=== PATIENT | male | born 1965 | race Caucasian/White ===

== ENCOUNTER → 2022-09-08 14:27 | Outpatient (CLI) | payer BC, SELFPAY ==
--- NOTE | ~2022-09-08 | XR_ITS ---
[id number] 09/08/2022 14:47 Indication: Left foot pain Procedure: 4 views left foot Comparison: No prior studies for comparison. Findings: There is severe osteoarthritis of the first MTP joint. Small degenerative calcaneal entheso phyte. Lisfranc joint intact. No focal soft tissue abnormality. No radiopaque foreign bodies. 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 Reviewed, dictated and finalized at location D. 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
== END ==
PROVIDERS: PCP Family Medicine; Visit Provider Family Medicine
DX: M19.072 Primary osteoarthritis, left ankle and foot (principal)
CPT/HCPCS: 73630

== ENCOUNTER 2022-11-30 15:23 | Outpatient (CLI) | payer BC, SELFPAY ==
[2022-11-30 15:51] LABS: Basophils Percent Auto 0.3 % (0.2-1.2); Eosinophils Absolute Auto 0.1 K/mm3 (0-0.3); Eosinophils Percent Auto 0.9 % (0-4.4); Hematocrit 47.6 % (42.0-52.0); Hemoglobin 16.4 g/dL (14.0-18.0); Immature Granulocyte Absolute 0.06 K/mm3 (0.00-0.031); Immature Granulocyte Percent A 0.7 % (0-0.5); Lymphocytes Absolute Auto 2.05 K/mm3 (0.9-3.2); Lymphocytes Percent Auto 23.9 % (18.3-44.2); Mean Corpuscular HGB Conc 34.5 g/dl (32-36); Mean Corpuscular Hemoglobin 35.1 pg (26-34); Mean Corpuscular Volume 101.9 fl (80-100); Mean Platelet Volume 10.4 fl (7.4-10.4); Monocytes Absolute Auto 0.6 K/mm3 (0.1-0.6); Monocytes Percent Auto 6.6 % (2.6-8.5); Neutrophils Absolute Auto 5.8 K/mm3 (1.3-6.7); Neutrophils Percent Auto 67.6 % (45.5-73.1); Platelet Count Result 207 k/mm3 (150-375); Red Blood Count 4.67 M/mm3 (4.6-6.20); Red Cell Distribution Width 12.4 % (11.5-14.5); White Blood Count 8.6 K/mm3 (4.5-10.0)
[2022-11-30 16:39] LABS: Alanine Aminotransferase 53 U/L (6-50); Albumin Level 4.2 g/dL (3.5-5.1); Alkaline Phosphatase 84 U/L (38-126); Anion Gap 2 mmol/L (8-16); Aspartate Amino Transferase 68 U/L (17-59); Bilirubin,Total 1.1 mg/dL (0.2-1.3); Blood Urea Nitrogen 11 mg/dL (9-20); Calcium 8.6 mg/dL (8.4-10.2); Carbon Dioxide 29 mmol/L (22-30); Chloride 101 mmol/L (98-107); Estimated Glomerular Filt Rate > 60; Glucose 101 mg/dL (65-110); Potassium 4.5 mmol/L (3.4-5.0); Sodium 132 mmol/L (137-145)
[2022-12-03 12:32] LABS: Erythropoietin (EPO) 9.5 mIU/mL (2.6-18.5)
== END 2022-11-30 15:24 | disposition home or self-care (01) ==
LOC: ANHLAB 15:32
PROVIDERS: PCP Family Medicine; Visit Provider Internal Medicine Hematology & Oncology
DX: D75.1 Secondary polycythemia (principal)
CPT/HCPCS: 36415; 80053; 82668; 85025

== ENCOUNTER → 2022-12-06 14:13 | Outpatient (CLI) | payer BC, SELFPAY ==
--- NOTE | ~2022-12-06 | XR_ITS ---
EXAMINATION: XR chest 2V DATE: 12/06/2022 14:36 INDICATION: Shortness of breath. TECHNIQUE: Frontal and lateral views of the chest were obtained. COMPARISON: Chest 2 views 12/26/2006, CT abdomen and pelvis 06/22/2018 FINDINGS: A calcified right lung nodule is consistent with old granulomatous disease. No pleural effu conor or pneumothorax. The heart size is normal. IMPRESSION: 1. No acute cardiopulmonary disease. Reviewed, dictated and finalized at location A.
== END ==
PROVIDERS: PCP Internal Medicine Hematology & Oncology; Visit Provider Internal Medicine Hematology & Oncology
DX: R06.02 Shortness of breath (principal)
CPT/HCPCS: 71046

== ENCOUNTER 2022-12-06 14:44 | Outpatient (CLI) | payer BC, SELFPAY ==
[2022-12-12 07:01] LABS: CALR Exon 9 Mutation Not Detected (Not Detected); CSF3R Exon 14/17 Mutation Not Detected (Not Detected); JAK2 Exon 12 Mutation Not Detected (Not Detected); JAK2 V617F Mutation Not Detected (Not Detected); MPL Exon 10 Mutation Not Detected (Not Detected); Specimen Source Blood
== END 2022-12-06 14:45 | disposition home or self-care (01) ==
LOC: ANHLAB 14:46
PROVIDERS: PCP Internal Medicine Hematology & Oncology; Visit Provider Internal Medicine Hematology & Oncology
DX: D75.1 Secondary polycythemia (principal)
CPT/HCPCS: 36415; 81219; 81270; 81279; 81339; 81479

== ENCOUNTER 2023-03-30 15:06 | Outpatient (CLI) | payer BC, SELFPAY ==
[2023-03-30 15:37] LABS: Basophils Percent Auto 0.5 % (0.2-1.2); Eosinophils Absolute Auto 0.1 K/mm3 (0-0.3); Eosinophils Percent Auto 1.3 % (0-4.4); Hemoglobin 17.6 g/dL (14.0-18.0); Immature Granulocyte Absolute 0.07 K/mm3 (0.00-0.031); Immature Granulocyte Percent A 0.9 % (0-0.5); Lymphocytes Absolute Auto 1.69 K/mm3 (0.9-3.2); Lymphocytes Percent Auto 21.8 % (18.3-44.2); Mean Corpuscular HGB Conc 33.8 g/dl (32-36); Mean Corpuscular Hemoglobin 34.8 pg (26-34); Mean Corpuscular Volume 102.8 fl (80-100); Mean Platelet Volume 10.3 fl (7.4-10.4); Monocytes Absolute Auto 0.7 K/mm3 (0.1-0.6); Monocytes Percent Auto 8.5 % (2.6-8.5); Neutrophils Absolute Auto 5.2 K/mm3 (1.3-6.7); Platelet Count Result 207 k/mm3 (150-375); Red Blood Count 5.06 M/mm3 (4.6-6.20); Red Cell Distribution Width 12.4 % (11.5-14.5); White Blood Count 7.7 K/mm3 (4.5-10.0)
[2023-03-30 15:42] LABS: Blood Urea Nitrogen 13 mg/dL (8-26); Carbon Dioxide 29 mmol/L (22-30); Chloride 101 mmol/L (98-109); Estimated Glomerular Filt Rate > 60; Glucose 113 mg/dL (70-105); Ionized Calcium (POC) 1.13 mmol/L (1.11-1.31); Potassium 5.1 mmol/L (3.5-4.9); Sodium 139 mmol/L (138-146)
[2023-03-30 17:12] LABS: Alanine Aminotransferase 60 U/L (6-50); Albumin Level 4.3 g/dL (3.5-5.1); Alkaline Phosphatase 94 U/L (38-126); Anion Gap 7 mmol/L (8-16); Aspartate Amino Transferase 78 U/L (17-59); Bilirubin,Total 0.9 mg/dL (0.2-1.3); Blood Urea Nitrogen 13 mg/dL (9-20); Calcium 9.2 mg/dL (8.4-10.2); Carbon Dioxide 28 mmol/L (22-30); Chloride 102 mmol/L (98-107); Estimated Glomerular Filt Rate > 60; Glucose 112 mg/dL (65-110); Potassium 5.2 mmol/L (3.4-5.0); Sodium 137 mmol/L (137-145)
== END 2023-03-30 15:07 | disposition home or self-care (01) ==
LOC: ANHLAB 15:08
PROVIDERS: PCP Family Medicine; Visit Provider Internal Medicine Hematology & Oncology
DX: D75.1 Secondary polycythemia (principal)
CPT/HCPCS: 36415; 80047; 80053; 85025

== ENCOUNTER → 2023-05-17 13:33 | Outpatient (CLI) | payer BC, SELFPAY ==
--- NOTE | ~2023-05-17 | XR_ITS ---
XR knee LT min 4V DATE: 05/17/2023 13:55 INDICATION: Left knee primary osteoarthritis TECHNIQUE: AP, lateral, PA and sunrise views COMPARISON: None FINDINGS: There is tricompartment osteoarthritis, most severe at the medial compartment with severe l oss of joint space, periarticular spurring and subarticular degenerative cyst at the outer medial asp ect of the medial tibial plateau. There is moderate joint space narrowing and periarticular spurring of the patellofemoral joint. Mild periarticular spurring at the lateral compartment. There is suprapatellar knee joint effusion. No fracture or dislocation, periosteal reaction or bone destruction, radiopaque intra-articular loose body or chondrocalcinosis is evident. IMPRESSION: Tricompartment osteophytosis, most severe at the medial compartment Suprapatellar knee joint effusion Reviewed, dictated and finalized at location L. E CUFFER
--- NOTE | ~2023-05-17 | XR_ITS ---
XR knee RT min 4V DATE: 05/17/2023 13:55 INDICATION: Left knee pain TECHNIQUE: [place], AP, PA and lateral views COMPARISON: None FINDINGS: Mild suprapatellar knee joint effusion is suggested. There is minimal periarticular spurring of the patella. Joint spaces are relatively preserved. No fracture, dislocation, periosteal reaction or bone destruction is detected. No radiopaque intra-ar ticular loose body or chondrocalcinosis. IMPRESSION: Probable mild suprapatellar knee joint effusion Mild patellofemoral osteoarthritis Reviewed, dictated and finalized at location L. AND COAL TRANSPORT OPERATOR
--- NOTE | ~2023-05-17 | XR_ITS ---
XR shoulder RT min 2V DATE: 05/17/2023 13:55 INDICATION: Right shoulder pain TECHNIQUE: 4 views COMPARISON: None FINDINGS: Mild degenerative change at the right acromioclavicular joint. No fracture or dislocation, periosteal reaction or bone destruction or abnormal soft tissue calcifica tion of the right shoulder. IMPRESSION: Mild degenerative change at right acromioclavicular joint Reviewed, dictated and finalized at location L. AL MERCHANDISING ASSISTANT
== END ==
PROVIDERS: PCP Family Medicine; Visit Provider Family Medicine
DX: M25.462 Effusion, left knee (principal); M17.0 Bilateral primary osteoarthritis of knee; M25.461 Effusion, right knee; M19.011 Primary osteoarthritis, right shoulder
CPT/HCPCS: 73030; 73564

== ENCOUNTER 2023-08-02 15:21 | Outpatient (CLI) | payer BC, SELFPAY ==
--- NOTE | ~2023-08-02 | MR_ITS ---
EXAMINATION: MR shoulder RT wo con DATE: 08/02/2023 16:23 INDICATION: Right shoulder pain TECHNIQUE: Magnetic resonance imaging (MRI) of the right shoulder was performed without intravenous c ontrast. Sequences included axial PD-weighted FS FSE, coronal oblique PD-weighted FS FSE, coronal obl ique T2-weighted FS FSE, sagittal PD-weighted FS FSE, and sagittal T1-weighted SE. COMPARISON: None. FINDINGS: Coracoacromial arch: The acromion undersurface is flat in morphology (type I). The coracoacromial ligament is normal. Mode rate acromioclavicular osteoarthritis. Rotator cuff: Mild supraspinatus tendinopathy without tear. The infraspinatus and teres minor tendons are normal. M ild subscapularis tendinopathy with small split tear beginning along the lesser tuberosity footplate at the junction of the cephalad and middle thirds of the tendon. Normal rotator cuff muscle bulk and signal. Biceps tendon, glenoid labrum and glenohumeral cartilage: Complete tear at the glenoid attachment of the long head biceps tendon which is retracted below the c audal margin of the field of imaging. There is associated tear of the superior glenoid labrum beginni ng anteriorly at the 12:30 position which extends posteriorly to the 9:00 position. There is an addit ional small tear at the base of the 3:00-4:00 position of the anteroinferior glenoid labrum. There is an adjacent very small deep chondral ulceration with underlying tiny central subchondral osteophyte and minimal subarticular edema-like signal change at the anteroinferior rim of the glenoid. Remainder of the glenohumeral cartilage appears normal. Fluid: Small glenohumeral joint effusion at the axillary and subscapular recesses. No loose osteochondral [place] dies. No abnormal fluid signal in the subacromial/subdeltoid bursa to suggest bursitis. Bones: Bone alignment is normal. Normal marrow signal with no fracture or pathologic marrow replacing proces s. IMPRESSION: 1. Mild glenohumeral osteoarthritis with tear at the superior to posterosuperior glenoid labrum and s eparate smaller labral tear and small focus of adjacent high-grade chondromalacia at the anteroinferi or glenoid. 2. Complete long head biceps tendon avulsion distal retraction from its glenoid anchor. 3. Mild supraspinatus and subscapularis tendinopathy with very small longitudinal split tear at the l rod tuberosity insertion of the subscapularis tendon. 4. Moderate acromioclavicular osteoarthritis. Reviewed, dictated and finalized at location A. IMPRESSION: 1. Mild glenohumeral osteoarthritis with tear at the superior to posterosuperio r glenoid labrum and separate smaller labral tear and small focus of adjacent h igh-grade chondromalacia at the anteroinferior glenoid. 2. Complete long head biceps tendon avulsion distal retraction from its glenoid anchor. 3. Mild supraspinatus and subscapularis tendinopathy with very small longitudin al split tear at the lesser tuberosity insertion of the subscapularis tendon. 4. Moderate acromioclavicular osteoarthritis.
== END 2023-08-02 15:22 | disposition home or self-care (01) ==
LOC: ANHIMG 15:21
PROVIDERS: PCP Family Medicine; Visit Provider Orthopaedic Surgery
DX: S46.111A Strain of muscle, fascia and tendon of long head of biceps, right arm, initial encounter (principal); X58.XXXA Exposure to other specified factors, initial encounter; M19.011 Primary osteoarthritis, right shoulder
CPT/HCPCS: 73221

== ENCOUNTER 2023-09-05 13:42 | Outpatient (CLI) | payer BC, SELFPAY ==
--- NOTE | ~2023-09-05 | XR_ITS ---
XR knee LT min 4V DATE: 09/05/2023 13:56 INDICATION: Chronic left knee pain. No injury. TECHNIQUE: 4 views COMPARISON: 05/17/2023 left knee FINDINGS: There is tricompartment osteoarthritis, most severe at the medial compartment, with minimal residual medial compartment joint space. There is periarticular spurring at all 3 compartments. No fracture or dislocation or joint effusion, periosteal reaction or bone destruction, radiopaque int ra-articular loose body or chondrocalcinosis is noted. IMPRESSION: Tricompartment osteoarthritis, most severe at the medial compartment Reviewed, dictated and finalized at location B. IMPRESSION: Tricompartment osteoarthritis, most severe at the medial compartmen t
== END 2023-09-05 13:43 | disposition home or self-care (01) ==
LOC: ANHIMG 13:43
PROVIDERS: PCP Family Medicine; Visit Provider Orthopaedic Surgery
DX: M25.562 Pain in left knee (principal); M17.12 Unilateral primary osteoarthritis, left knee
CPT/HCPCS: 73564

== ENCOUNTER 2023-10-24 12:48 | Outpatient (CLI) | payer BC, SELFPAY ==
--- NOTE | 2023-10-24 12:54 | ECG_ITS ---
Test Date: 2023-10-24 13:05:53 Measurements Intervals [place] Rate: 80 P: 47 DE: 135 QRS: 60 QRSD: 89 T: 19 QT: 345 QTc: 400 Interpretive Statements SINUS RHYTHM WITH MARKED SINUS ARRHYTHMIA DELAYED PRECORDIAL R/S TRANSITION BASELINE ARTIFACT- II, III BORDERLINE ECG No previous ECG available for comparison Electronically Signed On 10-24-2023 13:23:25 CDT by Santino May D.O.
== END 2023-10-24 12:49 | disposition home or self-care (01) ==
LOC: ANHSURGERY 12:51
PROVIDERS: PCP Family Medicine; Visit Provider Orthopaedic Surgery
DX: I10 Essential (primary) hypertension (principal); Z01.818 Encounter for other preprocedural examination; R94.31 Abnormal electrocardiogram [ECG] [EKG]
CPT/HCPCS: 93005

== ENCOUNTER 2023-10-27 02:20 | Day surgery (SDC) | payer BC, SELFPAY ==
[2023-10-19 16:21] VITALS: BMI 29.1
--- NOTE | 2023-10-19 16:29 | PC.NURSE ---
Report to the Outpatient Waiting Room, entrance under the green pavilion located off [facility], at time _1030_ on date _[id number]_. Planned Procedure Time: _1230_. Time changes happen often and if your time is changed the preop area will call you the afternoon before. - You and your visitor will be asked to self-screen and do not enter if you have any COVID symptoms. - A mask is optional within the hospital at this time. Patients may have clear liquids (water, carbonated beverages, clear teas, apple juice) until 3 hours prior to surgery with a maximum of 20 ounces. - No food from midnight until time of surgery Take the following medications with a SIP of water the morning of surgery: __Amlodipine DO NOT STOP ANY OF YOUR OTHER PRESCRIPTION MEDICATIONS PRIOR TO SURGERY ?EXCEPT THE FOLLOWING Medications to discontinue per physician None Date to take last dose Please no make-up, nail bulgarian, hairspray, perfume, deodorant, or body powder the day of surgery. No jewelry (including any body piercings) or valuables the day of surgery, leave them at home. Please take a shower or bath the night before, or the morning of, surgery with an antibacterial soap. Wear comfortable, loose fitting clothing. - Jewelry must be removed prior to entering the operating room. Rings and piercings that are not removed may be cut off. - The hospital will not accept responsibility for valuables. - Please leave all valuables, including medications, at home the day of surgery. If you are going home after surgery, a licensed school bus driver must drive you home. - NO public transportation without another adult if you receive anesthesia. - We recommend that an adult stay with you for 24 hours following discharge. - We also recommend that you do not drive, make important decision, drink alcoholic beverages, or take any drugs that were not prescribed by your health care provider for at least 24 hours after your discharge time. Follow any additional instructions given to you from your surgeon. If you or anyone in your household have experienced Covid symptoms in the past week, please notify your surgeon or the nurse liaison at the phone number below for possible testing. Telephone instructions given to _Onesimo__and asked if any additional questions and then verbalized understanding. Patient advised to call surgeon office or pre surgery nurse liaison [phone] if any additional questions.
--- NOTE | 2023-10-26 15:32 | WPDANESEPPF ---
Anes - Initial Pre Proc Eval Procedure: Operation Date: 10/27/23 12:30 Proposed Procedures p Right Shoulder Arthroscopic Rotator Cuff Repair, Subacromial Decompression, Labral Debridement - Hossein Grey MD Date/Time: 10/26/23 15:32 Surgeon: Hossein Grey MD Pre Op Diagnosis: rotator cuff tendonitis right shoulder Patient Data Age: 57 Gender: M Height: 1.65 m Weight: 79.5 kg Allergies Allergy/AdvReac Type Severity Reaction Status Date / Time No Known Allergies Allergy Verified 10/27/23 10:57 Home Medications Medication Instructions Recorded Confirmed Type sildenafil 100 mg tablet 100 mg PO DAILY PRN sexual 11/01/22 10/27/23 Rx activity #30 tabs benazepril 20 mg tablet 20 mg PO DAILY #90 tabs 06/25/23 10/27/23 Rx hydrocodone 5 mg-acetaminophen 325 1 - 2 tablet PO Q12H PRN pain #30 07/22/23 10/27/23 Rx mg tablet tabs amlodipine 5 mg tablet See Rx Instructions .Route 09/21/23 10/27/23 Rx .COMPLEX #90 tabs cyclobenzaprine 10 mg tablet 10 mg PO HS PRN Spasms 10/19/23 10/27/23 History Patient hx anesthesia problems: none Family hx anesthesia problems: none Results Review: All pre-operative results and documents have been reviewed as part of the pre-operative evaluation. [facility] Past Medical History Medical History (Updated 10/26/23 @ 15:33 by Neno Smith DO) Arthritis of first MTP joint BMI 27.0-27.9,adult BMI 30.0-30.9,adult Decreased libido Diverticulitis Elevated hemoglobin Erectile dysfunction Essential (primary) hypertension Knee osteoarthritis Right shoulder pain Screening PSA (prostate specific antigen) Screening, lipid Spasm of thoracic back muscle Family History Family History Grandparent Hypertension Family history of malignant neoplasm of stomach Father Family history of alcoholism Family history of coronary artery disease Mother Family history of malignant neoplasm of breast in first degree relative Cerebrovascular accident Breast cancer Sibling History of colon resection Social History Social History (Updated 10/27/23 @ 12:30 by Neno Smith DO) Years smoked: 20 Smoking status: Current every day smoker Tobacco type: cigars Smokeless tobacco user: chewing tobacco Second hand tobacco smoke exposure: Yes Alcohol intake: current Drinks per week: 6 Alcohol use details: 2 drinks/day Substance use: current Substance use type: marijuana Do You Feel Safe in your Home?: Yes Lack of Transportation: No Lack of Food: Never True Current Housing: I Have Housing Concerned About Future Housing: No Difficulty Paying Gas/Electric Bills: No Difficulty Paying for Meds: No Currently Unemployed: No Education: High School Diploma/GED Difficulty w/ Childcare or Family Care: No Living arrangements: with family Additional living arrangements comments: brother, who is disabled Occupation/Education: occupation 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 Gender identity (if verbalized by the patient): Male Spiritual care concerns: No Anes - Eval Final PreProcedure Day of Procedure 10/26/23 15:32 Patient weight: overweight Heart: regular rate and rhythm Lungs: clear to auscultation Airway: Mallampati scale class III and special considerations poor dentition Neurological: alert and oriented Last oral intake: >/= 8 hours ASA classification: III Emergent: no Anesthetic plan: proceed Anesthesia type and monitoring: general ETT and standard monitoring Results Review: All pre-operative results and documents have been reviewed as part of the pre-operative evaluation. Informed Consent: The patient's anesthetic plan and its attendant risks and benefits were discussed with the patient/family/POA. Questions were solicited and answers provided to the satisfaction of the patient/family/POA
[2023-10-27] VITALS (9 sets, daily range): BP systolic 127–144; BP diastolic 80–90; PULSE 60–79; RESP 15–20; TEMP 36.2–36.6; O2SAT 96–100
[2023-10-27] MEDS: LACTATED RINGERS 1,000 ML 30 ML IV CONT ×2 (10:50→14:22)
[2023-10-27] MEDS: ACETAMINOPHEN 500 MG TABLET 1000 MG PO (10:52)
[2023-10-27] MEDS: KETOROLAC 15 MG/ML VIAL (*BKC) IV PUSH (10:52)
--- NOTE | 2023-10-27 11:07 | SUR.PREOP ---
PT UNABLE TO LIFT ARM GREATER THEN APPROX. 20 DEGREES AWAY FROM BODY LATERALLY OR ANTERIORLY
--- NOTE | 2023-10-27 12:24 | WPDHPUPDATE1 ---
History and Physical Update Update Date/Time: 10/27/23 12:24 History and Physical has been reviewed, including an updated exam of the patient. There are NO changes in the patient's condition. Risks, benefits, and alternatives have been discussed and questions answered. Patient agrees to proceed with procedure.
--- NOTE | 2023-10-27 12:30 | WPDANESPNB ---
Anes - Peripheral Nerve Block Date/Time: 10/27/23 12:30 I have discussed with the patient/family/POA the placement of a peripheral nerve block for post-operative pain management, including associated risks, benefits, complications, and side effects. Alternative methods of post-operative analgesia were detailed. Questions were solicited and answers provided to the satisfaction of the patient/family/POA. Time-Out: A pre-procedural Time-Out was completed immediately before starting the procedure and confirmed: Patient Identification, Site, Procedure, Patient Position and the Availability of Requisite Equipment. Clinical Indications: Acute post-operative pain management requested by the operative surgeon. Nerve Block Insertion Note Anes-nerve block: interscalene right Patient position: supine Skin prep: chlorhexidine Needle: 22 gauge, stimulating, insulated echogenic needle. Needle length: 50 mm Technique: ultrasound Injectate: bupivacaine 0.5% with epi 5 mcg/ml (20cc- no epi) Observations: tolerated well Complications: none Procedure start time:: 1230 Procedure end time:: 1233
[2023-10-27] MEDS: ceFAZolin 2 GM/D5W 50 ML 2 GM/50 ML BAG IVPB (12:48)
[2023-10-27] MEDS: EPINEPHrine HCL INJ 1 MG/ML AMPUL 3 MG IRRIGATION (13:41)
--- NOTE | 2023-10-27 16:13 | W.PM.PROC2 ---
Procedure Note - Detailed Date of Procedure 10/27/23 Pre-op Diagnosis Rotator cuff tendonitis right shoulder Post-op Diagnosis Other (1. Degenerative arthritis 2. Chronic biceps rupture 3. Impingement syndrome) Procedure Performed Right shoulder arthroscopic 1. Extensive debridement with chondroplasty, labral debridement, and multiple small loose body excision 2. Arthroscopic subacromial decompression Surgeon Hossein Grey MD High Speed Printer Operator Coby Andre PA-C Anesthesia General Findings Moderate to severe glenohumeral arthritis. Large areas of delamination on the humerus. Extensive labral tearing. Chronic biceps rupture. Labral was debrided. The articular supraspinatus showed minimal anterior fraying. This was debrided. The subscapularis showed minimal split fraying. No suture repair was required. There were extensive loose bodies floating throughout the joint in excess of 6-10. These were treated with removal through the arthroscopic shaver. Attention was turned to the subacromial space. Significant type 3 acromion spur. Mild tendinitis of the rotator cuff. Acromioplasty performed. Description of Procedure Patient was given an interscalene block in the holding area. Preoperative antibiotics were given. The patient was brought to the operating room. Careful positioning in the beach chair was accomplished. The head neck were carefully positioned. A small bump was placed under the left shoulder. The shoulder was examined. The shoulder was prepped and draped in the usual sterile fashion. Standard posterior and anterior arthroscopic portals were established. The shoulder was inspected. Debridement of the loose fragments of cartilage that were floating in the joint was accomplished with the shaver. Over half a dozen small to 5 mm fragments were debrided. The labrum was debrided 360?. There was some exposed bone at the most anterior aspect of the glenoid. The humeral head was smooth were able. The camera was switched to the anterior portal to allow access to the more posterior aspects of humerus. The supraspinatus showed very low-grade fraying in the anterior aspect. This was treated with debridement. The subscapularis was carefully inspected. There was mild split tearing on the undersurface but otherwise the tendon was intact. The radiofrequency probe was used to seal and stabilize the various tissues along the labrum in particular. Attention was turned to the subacromial space. A complete bursectomy was performed. The acromion was clearly visualized. Careful acromioplasty was performed utilizing views from both lateral and posterior. Loose bone fragments were carefully irrigated from the subacromial space. The arthroscopic instruments were removed. The wounds were closed with interrupted 3-0 Monocryl suture followed by Steri-Strips. A sterile dressing was applied with a sling. The patient was extubated and brought to the recovery room in stable condition. There were no complications. Physician speech language pathology assistant, Coby Rob PA-C, required for surgery; including patient positioning, draping, arthroscopic camera operation, maintaining instrument position, wound closure, and dressing and sling placement. Estimated Blood Loss 10 Drains No Packing No Pathology None sent Complications No immediate complications Condition Stable Disposition PACU [facility] Billing Surgery - Charge Forward: Surgery Billing
== END 2023-10-27 15:49 | disposition home or self-care (01) ==
PROVIDERS: PCP Family Medicine; Visit Provider Orthopaedic Surgery
PROC: (CPT 29805; principal; 2023-10-27 12:30)
DX: M75.81 Other shoulder lesions, right shoulder (principal); M19.011 Primary osteoarthritis, right shoulder; M75.41 Impingement syndrome of right shoulder; G89.18 Other acute postprocedural pain; I10 Essential (primary) hypertension; F17.290 Nicotine dependence, other tobacco product, uncomplicated; F17.220 Nicotine dependence, chewing tobacco, uncomplicated; F12.90 Cannabis use, unspecified, uncomplicated
CPT/HCPCS: 29823; 64415; A4565; A9270; J0171; J0690; J1885; J2250; J3010; J7120

== ENCOUNTER 2024-12-07 12:31 | Outpatient (CLI) | payer BC, SELFPAY ==
--- OUTSIDE RECORDS SUMMARY | 2024-12-07 12:35 | XMS_ITS | Clinical Summary ---
Author Organization [facility] Address [address] [place] [address] Care Team Providers Care Ammonia Technician Name Role Phone Paulie Mcmullen MD Primary Care Provider [phone] Allergies No known active allergies Medications benazepriL (LOTENSIN) 20 mg tablet Take 20 mg by mouth daily. Active amLODIPine (NORVASC) 5 mg tablet Take 5 mg by mouth daily. Active Active Problems No known active problems Encounters Date Type Department Care Team Description 10/09/2024 External Device Data [facility] ABSTRACTION Provider, Abstract from Last 3 Months Family History Relation Name Status Comments Brother Alive Daughter 1 Alive Daughter 2 Alive Father Mother Social History Tobacco Use Types Packs/Day Years Used Date Smoking Tobacco: Every Day Cigarettes Smokeless Tobacco: Never Tobacco Cessation:Ready to Q uit: Not Asked; Counseling Given: Not Answered Alcohol Use Standard Drinks/Week Comments Yes 0 (1 standard drink = 0.6 oz pur e alcohol) rare Sex and Gender Information Value Date Recorded Sex Assigned at Not on file 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 Gender Identity Not on file Sexual Orientation Not on file Last Filed Vital Signs Vital Sign Reading Time Taken Comments Blood Pressure 147/94 11/24/2023 1:56 PM CDT Pulse 82 11/24/2023 1:53 PM CDT Temperature 36.9 C (98.4 F) 11/24/2023 1:53 PM CDT Respiratory Rate 16 11/24/2023 1:53 PM CDT Oxygen Saturation 96% 11/24/2023 1:53 PM CDT Inhaled Oxygen Concentration - - Weight 80.6 kg (177 lb 12.8 oz) 11/24/2023 1:53 PM CDT Height 165.1 cm (5' 5) 11/30/2022 2:45 PM CDT Body Mass Index 29.59 11/30/2022 2:45 PM CDT Plan of Treatment Health Maintenance Due Date Last Done Comments DTAP/TDAP/TD VACCINES (1 - Tdap) 1985 HEPATITIS B VACCINES (1 of 3 - 19+ 3-dose series) 10/17 COLORECTAL SCREENING 11/09/2011 Colorectal Cancer Screening 11/09/2011 FIT-DNA Q 3 years 11/09/2011 FIT/FOBT Q 1 year 11/09/2011 Flex Sig/CT Colonography Q 5 years 11/09/2011 ZOSTER VACCINE (1 of 2) 2016 INFLUENZA VACCINE (#1) 2024 Insurance [employer] Care Teams Ammonia Technician Relationship Specialty Start Date End Date Paulie Mcmullen MD [address] [place] [address] PCP - General Family Practice 10/13/22
--- OUTSIDE RECORDS SUMMARY | 2024-12-07 12:35 | XMS_ITS | Encounter Summary ---
Author Organization [employer] Address 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 [address] PCP - General Family Practice 10/13/22 documented as of this encounter
--- OUTSIDE RECORDS SUMMARY | 2024-12-07 12:35 | XMS_ITS | Encounter Summary ---
Author Organization [employer] Address 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 [id number] PCP - General Family Practice 10/13/22 documented as of this encounter
[2024-12-07 13:03] LABS: Hematocrit 52.4 % (42.0-52.0); Hemoglobin 17.5 g/dL (14.0-18.0); Immature Granulocyte Percent A 0.7 % (0-0.5); Lymphocytes Absolute Auto 1.74 K/mm3 (0.9-3.2); Mean Corpuscular HGB Conc 33.4 g/dl (32-36); Mean Corpuscular Hemoglobin 34.9 pg (26-34); Mean Corpuscular Volume 104.4 fl (80-100); Nucleated Red Blood Cells Absolute Auto 0.000 K/mm3 (0.0-0.012); Nucleated Red Blood Cells Perc 0.0 % (0.0-0.2); Platelet Count Result 226 k/mm3 (150-375); Red Blood Count 5.02 M/mm3 (4.6-6.20); White Blood Count 7.5 K/mm3 (4.5-10.0)
[2024-12-07 13:29] LABS: Iron 238 ug/dL (49-181)
[2024-12-07 13:30] LABS: Alanine Aminotransferase 29 U/L (6-50); Albumin Level 4.1 g/dL (3.5-5.1); Alkaline Phosphatase 89 U/L (38-126); Anion Gap 8 mmol/L (4-12); Aspartate Amino Transferase 46 U/L (17-59); Bilirubin,Total 1.6 mg/dL (0.2-1.3); Blood Urea Nitrogen 10 mg/dL (9-20); Calcium 9.0 mg/dL (8.4-10.2); Carbon Dioxide 26 mmol/L (22-30); Chloride 101 mmol/L (98-107); Cholesterol 165 mg/dL (0-200); Estimated Glomerular Filt Rate > 60; Glucose 113 mg/dL (65-110); HDL Direct 63 mg/dL; Potassium 4.4 mmol/L (3.4-5.0); Sodium 135 mmol/L (137-145); Total Protein 7.1 g/dL (6.3-8.2); Triglycerides 60 mg/dL (<150)
[2024-12-07 13:37] LABS: Percent Iron Saturation 89 % (20-50)
[2024-12-07 13:51] LABS: Free T4 Free Thyroxine 0.96 ng/dL (0.78-2.19)
[2024-12-07 14:05] LABS: Prostate Specific Antigen 0.7 ng/mL (< OR = 4.0); Thyroid Stimulating Hormone 4.480 uIU/mL (0.465-4.680)
[2024-12-07 14:10] LABS: Ferritin 143.00 ng/mL (11.1-264)
[2024-12-08 07:08] LABS: GGT 109 IU/L (0-65)
[2024-12-08 08:08] LABS: C-Reactive Protein, Cardiac 6.13 mg/L (0.00-3.00)
[2024-12-11 16:07] LABS: ANA by IFA Rfx Titer/Pattern Negative (.)
[2024-12-13 11:09] LABS: HLA-B27 Negative (.)
[2024-12-14 14:08] LABS: Free Testosterone (Direct) 9.8 pg/mL (7.2-24.0)
== END 2024-12-07 12:32 | disposition home or self-care (01) ==
LOC: ANHLAB 12:33
PROVIDERS: PCP Family Medicine; Visit Provider Family Medicine
DX: D58.2 Other hemoglobinopathies (principal); M25.50 Pain in unspecified joint; F10.10 Alcohol abuse, uncomplicated; I10 Essential (primary) hypertension; Z13.220 Encounter for screening for lipoid disorders; E03.9 Hypothyroidism, unspecified; Z12.5 Encounter for screening for malignant neoplasm of prostate
CPT/HCPCS: 36415; 80048; 80061; 80076; 81374; 82728; 82977; 83540; 83550; 84153; 84402; 84403; 84439; 84443; 85025; 85652; 86038; 86141; G0103

== ENCOUNTER 2024-12-26 12:42 | Outpatient (CLI) | payer BC, SELFPAY ==
--- NOTE | ~2024-12-26 | XR_ITS ---
XR lumbar spine 6V w bending Indication: chronic upper back pain that radiates down the spine Comparison: None Findings: Minimal loss of vertebral heights. No fracture, no subluxation flexion-extension. Moderate loss of disc height L3-4, L4-5 and L5-S1 Soft tissues unremarkable Impression: No acute abnormality. Reviewed, dictated and finalized at location A. Impression: No acute abnormality.
--- NOTE | ~2024-12-26 | XR_ITS ---
XR cervical spine min 6V Indication: chronic rt sided neck pain that radiates down the spine Comparison: None Findings: No fracture, no subluxation flexion-extension The disc heights are intact. Soft tissues unremarkable Impression: No acute abnormality. Reviewed, dictated and finalized at location A. Impression: No acute abnormality.
--- NOTE | ~2024-12-26 | XR_ITS ---
XR thoracic spine 3V Indication: chronic rt sided thoracic spine pain Comparison: None Findings: The vertebral heights are intact. No fracture or subluxation. The disc heights are intact. Soft tissues unremarkable Impression: No acute abnormality. Reviewed, dictated and finalized at location A. Impression: No acute abnormality.
== END 2024-12-26 12:43 | disposition home or self-care (01) ==
LOC: MICIMG 12:43
PROVIDERS: PCP Family Medicine; Visit Provider Family Medicine
DX: M54.6 Pain in thoracic spine (principal)
CPT/HCPCS: 72052; 72072; 72114